=== PATIENT | female | born 1960 | race African-American/Black ===

== ENCOUNTER → 2016-11-07 | Outpatient (CLI) | payer MEDICARE, OTHER ==
[2016-01-08 10:30] VITALS: BP 130/77
[~2016-11-07] MED LIST: CYCL10TA2 PO; GLIP10TA13 PO; HYDR12.58 PO; LISI-334 PO; METF-620 PO; PROAIR HFA8.5 GM INH
--- NOTE | 2016-11-07 15:59 | RAD ---
Renal ultrasound, 11/07/2016: History: Bilateral flank pain The right kidney measures 12.5 cm in length while the left kidney measures 11.7 cm. There is no evidence of hydronephrosis or a renal mass. The renal parenchymal echogenicity is within normal limits. The partially filled urinary bladder is unremarkable. Incidental note is made of increased hepatic echogenicity suggesting hepatic steatosis. IMPRESSION: No significant renal abnormality is detected.
== END | disposition home or self-care (01) ==
LOC: US 14:58
PROVIDERS: ATTEND Family Medicine
DX: R10.9 Unspecified abdominal pain (principal)
CPT/HCPCS: 76770

== ENCOUNTER 2017-03-24 09:13 | Emergency (ER) | payer MEDICARE, OTHER ==
[2017-03-24 09:59] LABS: BILIRUBIN,URINE NEGATIVE (NEG); CLARITY,URINE CLEAR; COLOR,URINE YELLOW; GLUCOSE,URINE >=1000 mg/dL (NEG); NITRITE,URINE NEGATIVE (NEG); PROTEIN,URINE NEGATIVE (NEG-TRACE)
[2017-03-24 10:13] LABS: RBC,URINE 0 /HPF (0-2); SQUAMOUS EPITHELIAL CELL,UR MOD /LPF
[2017-03-24 10:14] LABS: BACTERIA,URINE FEW /HPF (0-FEW); HYALINE CASTS, URINE FEW /HPF
[2017-03-24] MEDS: HYDROcodone/APAP 5/325MG 1 TAB TABLET PO ×2 (10:47)
[2017-03-24] MEDS: diazePAM 5 MG TABLET PO ×2 (10:47)
[2017-03-24 12:00] LABS: ADD MAN DIFF? NO
[2017-03-24 12:02] LABS: BASO % 1 % (0-3); EOS # 0.1 x10^3/uL (0.0-0.7); EOS % 2 % (0-3); HEMATOCRIT 35.2 % (36.0-47.0); HEMOGLOBIN 11.5 g/dL (12.0-15.5); LYMPH # 2.8 x10^3/uL (1.0-4.8); LYMPH % 51 % (24-48); MEAN CORPUSCULAR HEMOGLOBIN 26 pg (25-35); MEAN CORPUSCULAR HGB CONC 33 g/dL (31-37); MEAN CORPUSCULAR VOLUME 80 fL (79-100); MONO # 0.5 x10^3/uL (0.0-1.1); MONO % 8 % (0-9); NEUT # 2.1 x10^3uL (1.8-7.7); NEUT % 38 % (31-73); PLATELET COUNT 234 x10^3/uL (140-400); RED BLOOD COUNT 4.43 x10^6/uL (3.50-5.40); RED CELL DISTRIBUTION WIDTH 13.6 % (11.5-14.5); WHITE BLOOD COUNT 5.6 x10^3/uL (4.0-11.0)
[2017-03-24 12:29] LABS: ANION GAP 9 (6-14); BLOOD UREA NITROGEN 14 mg/dL (7-20); BUN/CREATININE RATIO 20 (6-20); CALCIUM 9.7 mg/dL (8.5-10.1); CARBON DIOXIDE 30 mmol/L (21-32); CHLORIDE 100 mmol/L (98-107); CREATININE 0.7 mg/dL (0.6-1.0); GFR 103.6; GLUCOSE 139 mg/dL (70-99); POTASSIUM 3.4 mmol/L (3.5-5.1); SODIUM 139 mmol/L (136-145)
[2017-03-24 12:34] LABS: ALBUMIN 3.8 g/dL (3.4-5.0); ALBUMIN/GLOBULIN RATIO 0.9 (1.0-1.7); ALK PHOS 108 U/L (46-116); ALT (SGPT) 24 U/L (14-59); AST (SGOT) 23 U/L (15-37); LIPASE 211 U/L (73-393); TOTAL BILIRUBIN 0.2 mg/dL (0.2-1.0); TOTAL PROTEIN 8.1 g/dL (6.4-8.2)
== END 2017-03-24 13:20 | disposition home or self-care (01) ==
LOC: ER 09:13
DX: R10.9 Unspecified abdominal pain (principal); M54.6 Pain in thoracic spine; R35.0 Frequency of micturition; G89.29 Other chronic pain; E11.9 Type 2 diabetes mellitus without complications; E78.00 Pure hypercholesterolemia, unspecified; I10 Essential (primary) hypertension; E03.9 Hypothyroidism, unspecified; K21.9 Gastro-esophageal reflux disease without esophagitis; Z90.710 Acquired absence of both cervix and uterus; F10.10 Alcohol abuse, uncomplicated; Z88.1 Allergy status to other antibiotic agents; Z88.5 Allergy status to narcotic agent; Z91.012 Allergy to eggs
CPT/HCPCS: 36415; 74176; 80053; 81001; 83690; 85025; 87086; 99285-25

== ENCOUNTER → 2017-07-20 | Outpatient (CLI) | payer MEDICARE, MEDICAID | END | disposition home or self-care (01) | LOC: RAD 11:01 | DX: Z11.1 Encounter for screening for respiratory tuberculosis (principal); R91.8 Other nonspecific abnormal finding of lung field | CPT/HCPCS: 71046 ==

== ENCOUNTER → 2017-11-27 | Outpatient (CLI) | payer MEDICARE, MEDICAID ==
[2017-03-24 12:05] VITALS: BP 127/81
[~2017-11-27] MED LIST changes: +DIAZ5TAB PO; -METF-620 PO; +METF10007 PO
--- NOTE | 2017-11-27 15:45 | KCIC ---
MRI Lumbar Spine without contrast History: Lumbar degenerative disc disease, previous fall, low back pain with left leg pain and numbness for 3 weeks Technique: Multiplanar, multi sequential noncontrast MR imaging was performed of the lumbar spine. Contrast: None Comparison: None Findings: There is some motion degradation. There is negligible anterior spondylolisthesis at L2-3, L3-4, L4-5, L5-S1. Conus terminates at L1. Lumbar vertebral body stature is maintained. There is multilevel ftgt-ee-[id number] degenerative disc disease throughout lumbar spine. There is degenerative endplate change greatest at L2-3 and L1-2 and also anteriorly L5-S1. There is some edema associated with the left L4-5 facet articulation. T12-L1: Neural foramina and spinal canal are adequate. L1-L2: There is disc osteophyte complex and bulge. Neural foramina and spinal canal are adequate. L2-L3: There is mild facet degenerative change and buckling of the ligamentum flavum. There is prominence of posterior epidural fat. There is posterior bulge, probable small superimposed protrusion/extrusion more centrally extending slightly above the intervertebral disc space. Combination of findings results in overall moderate attenuation of the thecal sac, posterior attenuation due to epidural lipomatosis. There is mild neural foramina compromise bilaterally somewhat greater on the left. L3-L4: There is minimal posterior bulge/protrusion. There is mild prominence of posterior epidural fat, also in the lateral recesses. There is overall mild attenuation of the thecal sac. There is mild buckling of the ligamentum flavum. There is mild narrowing of the left neural foramen, bguk-sv-[id number] narrowing on the right. L4-L5: There is moderate facet hypertrophic change and mild buckling of the ligamentum flavum. There is mild prominence of posterior epidural fat. There is minimal posterior bulge. Combination results in overall mild attenuation of the thecal sac. There is moderate narrowing of the left neural foramen greater inferiorly with contact undersurface exiting left L4 nerve root by bulge. There is very mild narrowing of the right neural foramen more distally. L5-S1: Neural foramina and spinal canal are adequate. There is mild facet degenerative change greater on the left. Impression: 1. There is multilevel gcjb-to-[id number] degenerative disc disease throughout lumbar spine. There is multilevel negligible grade 1 anterior spondylolisthesis L2-3 to L5-S1, multilevel facet degenerative change. There is some edema associated with the left L4-5 facet articulation probably reactive/degenerative in etiology. 2. There is overall moderate attenuation of the thecal sac at L2-3 in part from posterior epidural lipomatosis, minimal attenuation of the thecal sac L3-4 and to lesser degree at L4-5. 3. There is moderate narrowing of the left L4-5 and right L3-4 neural foramina, other minimal narrowing as stated. Electronically signed by: Danny Clark MD (11/27/2017 3:42 PM) [email or web address]
== END | disposition home or self-care (01) ==
LOC: KCIC MRI 14:23
PROVIDERS: ATTEND Family Medicine
DX: M51.36 Other intervertebral disc degeneration, lumbar region (principal); M48.061 Spinal stenosis, lumbar region without neurogenic claudication; M25.78 Osteophyte, vertebrae; E88.2 Lipomatosis, not elsewhere classified; R60.0 Localized edema; I10 Essential (primary) hypertension; E11.9 Type 2 diabetes mellitus without complications; E78.00 Pure hypercholesterolemia, unspecified; E03.9 Hypothyroidism, unspecified; K21.9 Gastro-esophageal reflux disease without esophagitis; Z90.710 Acquired absence of both cervix and uterus; Z88.1 Allergy status to other antibiotic agents; Z88.5 Allergy status to narcotic agent; Z88.6 Allergy status to analgesic agent; Z88.8 Allergy status to other drugs, medicaments and biological substances
CPT/HCPCS: 72148

== ENCOUNTER → 2018-05-08 | Outpatient (CLI) | payer MEDICARE ==
[2017-03-24 12:05] VITALS: BP 127/81
[~2018-05-08] MED LIST changes: +ALBU2.5V8 INH; -PROAIR HFA8.5 GM INH
--- NOTE | 2018-05-08 10:55 | RAD ---
DATE: 05/08/2018 EXAM: DIGITAL DIAGNOSTIC BILATERAL, BREAST LEFT HISTORY: Left breast pain COMPARISON: 02/22/2012, 02/08/2012 This study was interpreted with the benefit of Computerized Aided Detection (CAD). Breast Density: SCATTERED The breast parenchyma shows scattered fibroglandular densities. Breast parenchyma level B. FINDINGS: No new or enlarging breast densities are seen. Benign type calcifications are present. Small oil cysts are again noted anteriorly in the right breast. No suspicious microcalcifications are evident. Left breast ultrasound, 05/08/2018: A targeted ultrasound exam of the left breast was performed following laterally at the 3:00 location in the area of the patient's reported pain. A single normal appearing 6 x 9 mm lymph node is identified. No suspicious mass or abnormal fluid collection is seen. IMPRESSION: 1. Stable mammograms without evidence of malignancy. 2. The targeted ultrasound exam of the area of pain laterally on the left revealed no significant abnormality. BI-RADS CATEGORY: 2 BENIGN FINDING(S) RECOMMENDED FOLLOW-UP: 12M 12 MONTH FOLLOW-UP PQRS compliance statement: Patient information was entered into a reminder system with a target due date for the next mammogram. Mammography is a sensitive method for finding small breast cancers, but it does not detect them all and is not a substitute for careful clinical examination. A negative mammogram does not negate a clinically suspicious finding and should not result in delay in biopsying a clinically suspicious abnormality. "Our facility is accredited by the [employer] Mammography Program."
== END | disposition home or self-care (01) ==
LOC: MAMMO 09:40
PROVIDERS: ATTEND Family Medicine
DX: N64.4 Mastodynia (principal); N60.01 Solitary cyst of right breast
CPT/HCPCS: 76641; 77066

== ENCOUNTER → 2019-08-18 | Outpatient (CLI) | payer MEDICARE ==
[2017-03-24 12:05] VITALS: BP 127/81
[~2019-08-18] MED LIST changes: +CONTRAST GIVEN. MC PRN; +IOHEXOL 240 MG/ML 50ML VIAL. PO ONE; +IOHEXOL 300 MG/ML 100ML VIAL. IV ONE
[2019-08-18 08:44] LABS: CREATININE 0.8 mg/dL (0.6-1.0); GFR 88.2
--- NOTE | 2019-08-18 09:33 | RAD ---
EXAM: CT Abdomen and Pelvis with IV contrast INDICATION: Reason: LUQ ABDOMEN PAIN / Spl. Instructions: IV OMNI 300 75 MLS AND PO OMNI 240 50 MLS / History: TECHNIQUE: Multi-detector row CT images were acquired from the lung bases through the abdomen and pelvis with the use of IV contrast. Sagittal and coronal images were acquired from the transaxial data. All CT scans performed at this facility utilize dose optimization techniques as appropriate to the exam, including the following: Automated exposure control and adjustment of the mA and/or KV according to patient size (this includes techniques or standardized protocols for targeted exams where dose is indication/reason for exam). IV CONTRAST: Administered ORAL CONTRAST: Administered COMPARISON: 03/24/[address] without IV contrast. FINDINGS: LOWER CHEST: Calcified granuloma in the lingula.. LIVER: Unremarkable BILIARY SYSTEM: Gallbladder is unremarkable. Bile ducts are not dilated. PANCREAS: Unremarkable SPLEEN: Unremarkable ADRENALS: Unremarkable KIDNEYS & URETERS: Unremarkable BLADDER: Unremarkable REPRODUCTIVE ORGANS: Unremarkable GASTROINTESTINAL: The stomach, small bowel, and colon show moderate stool in the distal descending and sigmoid colon as well as scattered colonic diverticuli.. The appendix is normal. MESENTERY/PERITONEUM/RETROPERITONEUM: Unremarkable VASCULAR: Unremarkable LYMPH NODES: No adenopathy OSSEOUS & SOFT TISSUES: Mild diffuse osteosclerosis. Partial sacralization of the right L5 transverse process. IMPRESSION: Colonic diverticulosis and moderate fecal debris in the large bowel. No pathologic findings to explain left upper quadrant abdominal pain otherwise noted. Electronically signed by: Fede Cervantes MD (08/18/2019 9:31 AM) [id number]
== END | disposition home or self-care (01) ==
LOC: CT 07:01
PROVIDERS: ATTEND Family Medicine
DX: K57.30 Diverticulosis of large intestine without perforation or abscess without bleeding (principal); Q76.49 Other congenital malformations of spine, not associated with scoliosis; Q78.2 Osteopetrosis; J84.10 Pulmonary fibrosis, unspecified
CPT/HCPCS: 36415; 74177; 82565; 84520; Q9966; Q9967

== ENCOUNTER → 2019-10-20 | Outpatient (CLI) | payer OTHER, MEDICARE ==
[2017-03-24 12:05] VITALS: BP 127/81
[~2019-10-20] MED LIST changes: -IOHEXOL 240 MG/ML 50ML VIAL. PO ONE
[2019-10-20 12:49] LABS: CREATININE 0.8 mg/dL (0.6-1.0); GFR 88.2
--- NOTE | 2019-10-20 13:51 | RAD ---
EXAM: CT Neck with IV contrast INDICATION: Reason: neck pain esopageal stricture s/p EGD / Spl. Instructions: omni 300 75ml / History: TECHNIQUE: Multiple contiguous axial images were obtained of the neck with the use of IV contrast. Post-processing reconstructed images were obtained for interpretation. All CT scans performed at this facility utilize dose optimization techniques as appropriate to the exam, including the following: Automated exposure control and adjustment of the mA and/or KV according to patient size (this includes techniques or standardized protocols for targeted exams where dose is indication/reason for exam). IV CONTRAST: Administered COMPARISON: None FINDINGS: INTRACRANIAL STRUCTURES & ORBITS: Unremarkable. AERODIGESTIVE: The nasal cavity, nasopharynx, oral cavity, oropharynx, hypopharynx, larynx, and visualized trachea and esophagus demonstrate no masses or abnormal enhancement. CERVICAL LYMPH NODES & SOFT TISSUES: No adenopathy, soft tissue mass, or fluid collection. No abnormal soft tissue gas in the deep spaces of the neck. The cervical esophagus is unremarkable.. THYROID & SALIVARY GLANDS: Tiny hypodensities in the thyroid gland likely colloid cysts of no clinical significance.. LUNG APICES: Clear. OSSEOUS: Unremarkable IMPRESSION: Unremarkable CT neck with contrast. No evidence of pharyngeal or cervical esophageal laceration or otherwise abnormal soft tissue gas. EXAM: CT Chest with IV contrast INDICATION: Reason: neck pain esopageal stricture s/p EGD / Spl. Instructions: omni 300 75ml / History: TECHNIQUE: Multi-detector row CT images were acquired from the thoracic inlet through the upper abdomen with the use of IV contrast. Sagittal and coronal images were acquired from the transaxial data. All CT scans performed at this facility utilize dose optimization techniques as appropriate to the exam, including the following: Automated exposure control and adjustment of the mA and/or KV according to patient size (this includes techniques or standardized protocols for targeted exams where dose is indication/reason for exam). IV CONTRAST: Administered COMPARISON: Same day CT Neck with IV contrast FINDINGS: CARDIOVASCULAR: Unremarkable MEDIASTINUM & LIANNA: No adenopathy or masses. Thoracic esophagus by CT is unremarkable. LUNGS: No pulmonary infiltrate, nodule, or other focal abnormality. PLEURAL SPACE: No pleural effusions or pneumothorax. OSSEOUS & SOFT TISSUE: Generalized osseous demineralization and degenerative changes in the thoracic spine. ABDOMEN: The visualized portions of the upper abdomen are unremarkable. IMPRESSION: No acute findings on CT of the chest with IV contrast. In particular, no thoracic esophageal wall thickening, pneumomediastinum, pleural effusion or otherwise evidence of thoracic esophageal injury. Electronically signed by: Fede Cervantes MD (10/20/2019 1:48 PM) [id number]
== END | disposition home or self-care (01) ==
LOC: CT 11:52
PROVIDERS: ATTEND Internal Medicine Gastroenterology
DX: M47.814 Spondylosis without myelopathy or radiculopathy, thoracic region (principal); K22.2 Esophageal obstruction
CPT/HCPCS: 36415; 70491; 71260; 82565; 84520; Q9967

== ENCOUNTER → 2020-03-15 | Outpatient (CLI) | payer OTHER, MEDICARE ==
[2017-03-24 12:05] VITALS: BP 127/81
[~2020-03-15] MED LIST changes: -CONTRAST GIVEN. MC PRN; -IOHEXOL 300 MG/ML 100ML VIAL. IV ONE; -LISI-334 PO; +LISI20TA18 PO
--- NOTE | 2020-03-15 11:24 | KCIC ---
STUDY: MRI of the right shoulder without contrast INDICATION: Right shoulder pain and limited range of motion after a fall on 03/06/2020. COMPARISON: None. TECHNIQUE: Multiplanar MR imaging of the right shoulder performed without the use of intravenous or i ntra-articular contrast. FINDINGS: Degraded study on account of motion. AC joint: Moderate AC joint arthrosis. Subacromial subdeltoid bursitis. Rotator cuff: Large full-thickness, nearly fullwidth supraspinatus and infraspinatus tear with edema/ hemorrhage tracking medially past the myotendinous junction in keeping with recent injury. The tear i s U-shaped with the inner margin of the tear defect as far medial as the glenoid articular surface. T he teres minor remains intact as does the subscapularis. No rotator cuff muscular atrophy but there i s supraspinatus more so than infraspinatus edema. Labrum: Blunted/poorly delineated posterior half of the labrum. There is presumably a degree of teari ng at the biceps-labral anchor but difficult to evaluate due to motion. Long head biceps tendon: Normally located. Suspected thin interstitial tear of the intra-articular po rtion. Cartilage: High-grade/full-thickness chondral loss at the lower margin of the glenoid with associated subchondral cystic change. No full-thickness chondral defect seen along the humeral head. Bones: No acute fracture. Miscellaneous: Glenohumeral joint effusion with mild synovitis. Localized strain of the anterior delt oid, image 16 series 3. Mildly patulous posterior joint space Impression: 1. Large full-thickness U-shaped tear of the supraspinatus and infraspinatus with the inner margin o f the tear as far medial as the glenoid articular surface. Edema/hemorrhage extending along the supra spinatus and infraspinatus muscles in keeping with recent injury. No significant muscular atrophy. Th e teres minor and subscapularis are intact. 2. Normally located long head biceps tendon but with a suspected low-grade interstitial tear of the intra-articular portion. 3. The entire posterior half of the labrum is not well delineated/blunted. The posterior joint space is mildly patulous with elevation of the joint capsule. A manifestation of chronic instability is po ssible. 4. Localized high-grade/full-thickness chondrosis at the lower margin of the glenoid with associated subchondral cystic change. 5. Moderate AC joint arthrosis. Subacromial subdeltoid bursitis as well as a glenohumeral joint effu va with mild synovitis. 6. Mild localized strain of the anterior deltoid. Electronically signed by: ELISE WALLIS MD (03/15/2020 11:21 AM) [id number]
== END ==
LOC: KCIC MRI 07:54
PROVIDERS: ATTEND Family Medicine
DX: M19.011 Primary osteoarthritis, right shoulder (principal); M25.411 Effusion, right shoulder; M65.811 Other synovitis and tenosynovitis, right shoulder; M75.101 Unspecified rotator cuff tear or rupture of right shoulder, not specified as traumatic
CPT/HCPCS: 73221

== ENCOUNTER → 2020-04-19 | Outpatient (CLI) | payer OTHER, MEDICARE ==
[2017-03-24 12:05] VITALS: BP 127/81
--- NOTE | 2020-04-19 15:53 | EKG ---
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
--- NOTE | 2020-04-19 17:28 | RAD ---
Exam performed: 2 views of the chest. Indication: Reason: PRE-OP RIGHT SHOULDER ARTHROSCOPY. ROTATOR CUFF TEAR RIGHT SHOULDER. / Spl. Instr uctions: / History: Date of Service: 04/19/2020 4:00 PM. Comparison : None available. Findings: PA and lateral radiographs of the chest reveal a normal cardiomediastinal contour. The lungs are sarah r. No pleural fluid is seen. There are degenerative changes about bilateral acromioclavicular joints. Impression: No acute cardiopulmonary process seen. Electronically signed by: Angelica Gunter MD (04/19/2020 5:25 PM) [id number]
== END ==
LOC: RAD 15:27
PROVIDERS: ATTEND Orthopaedic Surgery Sports Medicine
DX: Z01.818 Encounter for other preprocedural examination (principal); M75.101 Unspecified rotator cuff tear or rupture of right shoulder, not specified as traumatic; M19.012 Primary osteoarthritis, left shoulder; M19.011 Primary osteoarthritis, right shoulder; Z96.611 Presence of right artificial shoulder joint
CPT/HCPCS: 71046; 93005

== ENCOUNTER → 2020-07-30 | Outpatient (CLI) | payer OTHER, MEDICARE ==
[2017-03-24 12:05] VITALS: BP 127/81
[2020-07-30 07:59] LABS: BASO % 0 % (0-3); EOS # 0.1 x10^3/uL (0.0-0.7); EOS % 2 % (0-3); HEMOGLOBIN 11.6 g/dL (12.0-15.5); LYMPH # 2.9 x10^3/uL (1.0-4.8); LYMPH % 42 % (24-48); MEAN CORPUSCULAR HEMOGLOBIN 27 pg (25-35); MEAN CORPUSCULAR HGB CONC 33 g/dL (31-37); MEAN CORPUSCULAR VOLUME 80 fL (79-100); MONO # 0.4 x10^3/uL (0.0-1.1); MONO % 6 % (0-9); NEUT # 3.5 x10^3/uL (1.8-7.7); NEUT % 51 % (31-73); PLATELET COUNT 229 x10^3/uL (140-400); RED BLOOD COUNT 4.36 x10^6/uL (3.50-5.40); RED CELL DISTRIBUTION WIDTH 14.1 % (11.5-14.5); WHITE BLOOD COUNT 6.9 x10^3/uL (4.0-11.0)
[2020-07-30 08:09] LABS: PROTHROMBIN TIME PATIENT 12.2 SEC (11.7-14.0)
[2020-07-30 08:21] LABS: ALBUMIN 4.3 g/dL (3.4-5.0); ALBUMIN/GLOBULIN RATIO 1.2 (1.0-1.7); CREATININE 0.7 mg/dL (0.6-1.0); GFR 102.6; TOTAL BILIRUBIN 0.2 mg/dL (0.2-1.0); TOTAL PROTEIN 7.8 g/dL (6.4-8.2)
== END ==
LOC: LAB 07:27
PROVIDERS: ATTEND Orthopaedic Surgery Sports Medicine
DX: Z01.818 Encounter for other preprocedural examination (principal); M75.101 Unspecified rotator cuff tear or rupture of right shoulder, not specified as traumatic
CPT/HCPCS: 36415; 80053; 85025; 85610; 85651; 85730

== ENCOUNTER → 2020-07-30 | Outpatient (CLI) | payer MEDICARE, OTHER ==
[2017-03-24 12:05] VITALS: BP 127/81
--- NOTE | 2020-07-30 09:30 | RAD ---
US ABDOMEN COMPLETE History: Reason: RUQ ABD PAIN / Spl. Instructions: / History: Comparison: None. Technique: Sonographic examination of the abdomen was performed and multiple grayscale and color Dopp ler static images were obtained. Findings: Liver demonstrates increased echogenicity. The liver measures 16.4 cm. Portal flow is patent. No cholelithiasis. No gallbladder wall thickening or pericholecystic fluid. Common bile duct measures 4.4 mm in diameter. Visualized pancreas unremarkable. The right kidney measures 11.2 x 4.3 x 3.7 cm. No hydronephrosis. The left kidney measures 9.6 x 4.6 x 4.9 cm. No hydronephrosis. The spleen measures 8.7 cm. Not well seen due to overlying structures. Visualized portions of the abdominal aorta and IVC are normal. IMPRESSION: 1. Unremarkable abdominal ultrasound. Electronically signed by: Juni Elias DO (07/30/2020 9:28 AM) [facility]
== END ==
LOC: US 07:24
PROVIDERS: ATTEND Family Medicine
DX: R10.11 Right upper quadrant pain (principal)
CPT/HCPCS: 76700